=== PATIENT | male | born 1945 | race Caucasian/White ===

== ENCOUNTER 2016-10-25 18:48 | Emergency (ER) | payer MEDICARE ==
[~2016-10-25 18:48] MED LIST: DESYREL-DPS50 MG PO; MELATIN3 MG PO; THERA-M1 EACH PO; VITAMIN B1100 MG PO
== END 2016-10-25 18:52 | disposition left against medical advice (07) ==
LOC: ER 18:48
DX: Z53.21 Procedure and treatment not carried out due to patient leaving prior to being seen by health care provider (principal)

== ENCOUNTER 2016-10-26 08:35 | Day surgery (SDC) | payer MEDICARE ==
--- NOTE | ~2016-10-26 | OR ---
ADMIT: 10/26/2016 RM/LOC: [facility] MR#: [id number] [address] [address] ANTON PELLETIER [address] [place] [address] Operative/Delivery Room Report SEX: M AGE: 71 : 1945 SURGERY DATE: 10/26/2016 SURGEON: Ventura Sanchez MD PREPROCEDURE DIAGNOSIS: Esophageal food foreign body. POSTPROCEDURE DIAGNOSES: 1. Esophageal food foreign body. 2. 3 cm type 1 sliding hiatal hernia with severe distal esophagitis. 3. Mild distal esophageal stricture. PROCEDURE: EGD with foreign body removal. INDICATIONS: The patient is a 71-year-old, who presents with an esophageal food foreign body, presents for EGD and foreign body removal. FINDINGS: The patient was taken to the endoscopy suite. IV sedation was given, placed in left lateral decubitus position. A bite block was placed in the patient's mouth. The gastroscope was introduced down the oropharynx, down the esophagus, where there was a large amount of meat at the end of the esophagus. I was able to introduce this into the stomach carefully. I placed the gastroscope through the pylorus into a normal duodenum. There was diffuse chronic gastritis. There was about a 3 cm type 1 sliding hiatal hernia. There was severe evidence of distal esophagitis with mild distal esophageal stricture. Due to the inflammation, I did not do a dilatation at this point in time. Remainder of the esophagus was normal. The gastroscope was removed. The patient tolerated the procedure without difficulty, transferred to recovery room in good condition. Ventura Sanchez MD/ cassandra JOB #: [id number] CC: Ventura Sanchez MD, Attending Physician Ventura Sanchez MD, Family Physician
--- NOTE | 2016-10-27 20:34 | ER ---
ADMIT: 10/26/2016 RM/LOC: [facility] MR#: [id number] [id number] [place], [place] [address] ANTON PELLETIER [address] [place] [address] Emergency Room Report SEX: M AGE: 71 : 1945 DATE: 10/26/2016 He is a 71-year-old male, presents to the emergency room with something stuck in his throat. He has been vomiting all night long. He ate some melon and some roast beef, and says he is unable to swallow. He has been vomiting. Last night he came to the emergency room, but left without being seen. His blood pressure is elevated, he blames that on the fact that he has been throwing up. He cannot even swallow his saliva. Upon examination, he seems to be a little anxious, attempts to swallow his saliva and I asked him to drink a little bit of sip of water, which he did, but stood up and had some emesis in the emesis bag and it was just pure water that he had swallowed. I consulted with Dr. Hancock. Then we gave him some glucagon, 15-20 minutes later checked on him, tried to swallow, he could not. So Dr. Kilpatrick was contacted for evaluation. The patient will be sent to short stay for further care. DIAGNOSIS: Food bolus. JAKUB Phillips / Clarence Hancock MD / modl JOB #: [id number] CC: Ventura Sanchez MD, Attending Physician Ventura Sanchez MD, Family Physician
--- NOTE | 2016-10-30 09:23 | HP ---
ADMIT: 10/26/2016 RM/LOC: [facility] MR#: [id number] [id number] [place], [place] [address] CHASE PELLETIER [address] [place] [address] History and Physical SEX: M AGE: 71 : 1945 DATE OF SERVICE: 10/26/2016 CHIEF COMPLAINT: "Can't swallow." HISTORY OF PRESENT ILLNESS: Chase is a very pleasant, 71-year-old male, who was watching soccer and was having a democrat at his house where he had a couple beers and ate some meat and watermelon and noticed his food got stuck in his esophagus. Since then, he has been having some discomfort and has been vomiting. He denies any prior events like this before. He denies any bowel problems, fever, chills, or night sweats. He does not deny any true pain but he does have some discomfort in his epigastric region. PAST MEDICAL HISTORY: Chronic leg pain. PAST SURGICAL HISTORY: Surgery for a "macular hole." ALLERGIES: NO KNOWN DRUG ALLERGIES. MEDICATIONS: [id number] ibuprofen. FAMILY HISTORY: Noncontributory. SOCIAL HISTORY: The patient denies any illicit drug use or tobacco use. He has not drank alcohol for approximately 2 years but started it back up 1-2 days ago and has had 1-2 beers a day. REVIEW OF SYSTEMS: CONSTITUTIONAL: The patient denies any fever, chills, or night sweats. The rest of comprehensive 10-point review of systems was performed and all other systems are negative. PHYSICAL EXAMINATION: GENERAL: The patient is in no acute distress. He is alert and oriented. HEENT: Head is normocephalic and atraumatic. EOMS are intact. Conjunctivae free of icterus, erythema, or pallor. Pinnae, free of deformities. Nose, midline. No tracheal deviation. NECK: Supple. ADMIT: 10/26/2016 RM/LOC: [facility] MR#: [id number] [id number] [place], [place] [address] MARTIN PELLETIERRGE [address] [place] [address] History and Physical SEX: M AGE: 71 : 1945 SKIN: Negative for jaundice, clubbing, edema, pallor, or cyanosis. LUNGS: Normal respiratory effort. HEART: Distal pulses intact. Regular rate and rhythm. ABDOMEN: Soft, nondistended, and nontender. Still some mild discomfort in his epigastric region. NEURO: Grossly intact. ASSESSMENT: Food bolus. PLAN: The plan is to have the patient undergo EGD with foreign body removal performed by originally Dr. Kilpatrick but now Dr. Sanchez. We should be rolling him back shortly, so I will be sure consent is signed and we will go underway. JAKUB Amezcua / Ventura Sanchez MD / cassandra JOB #: [id number] CC: Ventura Sanchez MD, Attending Physician Ventura Sanchez MD, Family Physician
--- NOTE | 2016-11-12 08:57 | HP ---
ADMIT: 10/26/2016 RM/LOC: [facility] MR#: [id number] [id number] [place], [place] [address] ANTON PELLETIER [address] [place] [address] Pre-OP History and Physical SEX: M AGE: 71 : 1945 CORRECTED: 11/08/2016 0643 [facility] DATE OF SERVICE: 10/26/2016 HISTORY OF PRESENT ILLNESS: The patient is a 71-year-old male, who presented to the emergency room today with a food esophageal foreign body had been in since last evening. This got worse, unable tolerate his saliva. Dr. Kilpatrick who is on-call I have been contacted for removal, but my schedule was freed up to meet the patient and set him up for food bolus removal bit sooner. He has had some dysphagia complaints in the past. I do not believe he is taking any antacid medicine. PAST SURGICAL HISTORY: Includes he has had eye surgery. He has chronic leg pain. ALLERGIES: NO ALLERGIES I SEE RECORDED HERE. REVIEW OF SYSTEMS: Denies abdominal pain, diarrhea, constipation, no melena, hematochezia, appetite, or weight changes. PHYSICAL EXAMINATION: VITAL SIGNS: He is afebrile. Vitals stable. HEART: Regular. LUNGS: Clear. ABDOMEN: Soft, nondistended, and nontender with no peripheral edema. No focal neurologic deficits. ASSESSMENT AND PLAN: The patient is a 71-year-old esophageal food foreign body. We will plan on EGD foreign body removal, possible balloon dilatation of a stricture, risk of esophageal perforation was discussed with the patient. He wished to proceed. Ventura Sanchez MD/ cassandra JOB #: [id number] CC: Ventura Sanchez MD, Attending Physician Ventura Sanchez MD, Family Physician CORRECTED: 11/08/2016 0643 [facility]
== END 2016-10-26 12:35 | disposition home or self-care (01) ==
LOC: ER 08:35 → SSS 10:30
PROC: 0DC58ZZ Extirpation of Matter from Esophagus, Via Natural or Artificial Opening Endoscopic (ICD-10-PCS; principal; 2016-10-26)
DX: T18.128A Food in esophagus causing other injury, initial encounter (principal); K44.9 Diaphragmatic hernia without obstruction or gangrene; K20.9 Esophagitis, unspecified; K22.2 Esophageal obstruction; Z79.899 Other long term (current) drug therapy